=== PATIENT | male | born 1940 ===

== ENCOUNTER → 2018-01-10 | Outpatient (CLI) | payer OTHER ==
[~2018-01-10] VITALS: Ht 152.4 cm; Wt 61.2 kg
== END | disposition home or self-care (01) ==
LOC: OFIC 805 08:04
DX: H61.23 Impacted cerumen, bilateral (principal); H91.8X3 Other specified hearing loss, bilateral

== ENCOUNTER 2018-02-06 09:05 | Outpatient (CLI) | payer OTHER ==
[~2018-02-06] VITALS: Ht 152.4 cm; Wt 61.2 kg
== END 2018-02-06 09:20 | disposition home or self-care (01) ==
LOC: OFIC 805 09:05
DX: H90.3 Sensorineural hearing loss, bilateral (principal)